=== PATIENT | female | born 1975 | race African-American/Black ===

== ENCOUNTER 2016-09-13 17:46 | Emergency (ER) | payer BC ==
--- NOTE | 2016-09-13 18:00 | ER Document Report ---
ED Medical Screen (RME) - General Stated Complaint: THUMB INJURY Time seen by provider: 17:58 Mode of Arrival: Ambulatory Information source: Patient Notes: 41-year-old female jammed her thumb 2 months ago on a door. She is coming in now because she couldn't get off work to have it evaluated, she is nontender at the [employer] but does have some pain at the right thumb PIP and MCP joint.. Physical Exam - Vital signs Vitals: Temp Pulse Resp BP Pulse Ox 98.3 F 80 20 148/84 H 100 09/13/16 17:55 09/13/16 17:55 09/13/16 17:55 09/13/16 17:55 09/13/16 17:55 Course - Vital Signs Vital signs: Temp Pulse Resp BP Pulse Ox 98.3 F 80 20 148/84 H 100 09/13/16 17:55 09/13/16 17:55 09/13/16 17:55 09/13/16 17:55 09/13/16 17:55
--- NOTE | 2016-09-13 19:21 | ER Document Report ---
ED Hand/Wrist Injury - General Chief Complaint: Thumb Injury Stated Complaint: THUMB INJURY Time seen by provider: 19:15 Mode of Arrival: Ambulatory Information source: Patient TRAVEL OUTSIDE OF THE [place] IN LAST 30 DAYS: No - HPI Injury to: Thumb - Pt. bent R thumb back in hyperextension earlier today at home. She denies h/o direct trauma. C/o R thumb pain - Related Data Allergies/Adverse Reactions: No Known Allergies Allergy (Unverified 09/13/16 19:34) Past Medical History - General Information source: Patient - Social History Smoking Status: Never Smoker Family History: None Renal/ Medical History: Denies: Hx Peritoneal Dialysis Review of Systems - Review of Systems Constitutional: No symptoms reported Cardiovascular: No symptoms reported Respiratory: No symptoms reported Gastrointestinal: No symptoms reported Musculoskeletal: See HPI, Joint pain -: Yes All other systems reviewed and negative Physical Exam - Vital signs Vitals: Temp Pulse Resp BP Pulse Ox 98.3 F 80 20 148/84 H 100 09/13/16 17:55 09/13/16 17:55 09/13/16 17:55 09/13/16 17:55 09/13/16 17:55 - Extremities Hand: Tender - min tenderness base of R thumb diffusely at carpo-metacarpal joint without erythema or swelling. There is FROM the the thumb and it is N/V intact Course - Vital Signs Vital signs: Temp Pulse Resp BP Pulse Ox 98.3 F 80 20 148/84 H 100 09/13/16 17:57 09/13/16 17:57 09/13/16 17:57 09/13/16 17:57 09/13/16 17:57 - Diagnostic Test Radiology reviewed: Reports reviewed - neg fx Procedures - Immobilization Right Thumb Time completed: 19:43 Pre-Proc Neuro Vasc Exam: Normal Immobilizer type: Finger splint (Static) Performed by: RN Post-Proc Neuro Vasc Exam: Normal Alignment checked and good: Yes Discharge - Discharge Clinical Impression: Sprain of hand, thumb, right Qualifiers: Encounter type: initial encounter Sprain of finger site: metacarpophalangeal joint Qualified Code(s): S63.641A - Sprain of metacarpophalangeal joint of right thumb, initial encounter Condition: Stable Disposition: HOME, SELF-CARE Additional Instructions: rest, thumb splint, take meds as prescribed, return if worse Prescriptions: Etodolac [Lodine] 400 mg PO BID #14 tablet Referrals: CHRISTIANO MEHTA MD [ACTIVE STAFF] - Follow up as needed
[2016-09-13 19:51] VITALS: BP 142/87
== END 2016-09-13 19:51 | disposition home or self-care (01) ==
LOC: ER 17:46
PROC: 2W3JX1Z Immobilization of Right Finger using Splint (ICD-10-PCS; principal; 2016-09-13)
DX: S69.91XA Unspecified injury of right wrist, hand and finger(s), initial encounter (principal); S63.641A Sprain of metacarpophalangeal joint of right thumb, initial encounter; X58.XXXA Exposure to other specified factors, initial encounter
CPT/HCPCS: 99283